=== PATIENT | female | born 1980 | race African-American/Black ===

== ENCOUNTER 2017-08-26 16:05 | Emergency (ER) | payer OTHER ==
[2017-08-26 16:55] LABS: ALT (SGPT) 12 U/L (8-55); AST (SGOT) 17 U/L (5-34); Albumin 4.5 g/dL (3.5-5.0); Alkaline Phosphatase 63 U/L (40-150); Anion Gap 19 mmol/L (10-20); BUN (Urea Nitrogen) 12 mg/dL (7.0-18.7); Bilirubin, Total 1.1 mg/dL (0.2-1.2); Calc. Creatinine Clearance 0 mL/min (70-130); Calcium 10.3 mg/dL (7.8-10.44); Chloride 102 mmol/L (98-107); Estimated GFR-MDRD Greater than 90; Globulin 3.8 g/dL (2.4-3.5); Glucose 80 mg/dL (70-105); Lipase 12 U/L (8-78); Potassium 3.9 mmol/L (3.5-5.1); Protein, Total 8.3 g/dL (6.0-8.3); Sodium 139 mmol/L (136-145)
[2017-08-26 16:56] LABS: CKMB 1.7 ng/mL (0-6.6); Troponin I Less than 0.010 ng/mL (< 0.028)
[2017-08-26 17:00] LABS: Carbon Dioxide 22 mmol/L (22-29)
== END 2017-08-26 17:06 ==
LOC: BURERS 16:05
DX: K29.70 Gastritis, unspecified, without bleeding (principal); J45.909 Unspecified asthma, uncomplicated; F31.9 Bipolar disorder, unspecified; F20.9 Schizophrenia, unspecified
CPT/HCPCS: 80053; 82553; 83690; 84484; 99285

== ENCOUNTER 2017-10-22 15:43 | Emergency (ER) | payer OTHER ==
[2017-10-22] MEDS ORDERED: Pantoprazole 40 MG VIAL ONE (16:03)
[2017-10-22 16:19] LABS: Eosinophils 6 % (0-10); Hemoglobin 12.6 g/dL (12.0-16.0); Lymphocytes 35 % (21-51); MDiff Complete? YES; Mean Corpuscular HGB CONC 34.2 g/dL (32.0-36.0); Mean Corpuscular Hemoglobin 28.7 pg (27.0-31.0); Mean Corpuscular Volume 83.9 fl (81.0-99.0); Mean Platelet Volume 6.4 fL (7.4-10.4); Monocytes 4 % (0-10); Neutrophil 55 % (42-75); Platelet Count 288 thou/uL (130-400); RBC Distribution Width 11.5 % (11.5-14.5); Red Blood Cell (RBC) Count 4.38 mill/uL (4.20-5.40); White Blood Cell (WBC) Count 5.8 thou/uL (4.8-10.8)
[2017-10-22 16:23] LABS: ALT (SGPT) 16 U/L (8-55); AST (SGOT) 18 U/L (5-34); Albumin 3.9 g/dL (3.5-5.0); Alkaline Phosphatase 41 U/L (40-150); Anion Gap 12 mmol/L (10-20); BUN (Urea Nitrogen) 7 mg/dL (7.0-18.7); Bilirubin, Total 0.4 mg/dL (0.2-1.2); Calc. Creatinine Clearance 0 mL/min (70-130); Calcium 9.2 mg/dL (7.8-10.44); Carbon Dioxide 23 mmol/L (22-29); Chloride 110 mmol/L (98-107); Estimated GFR-MDRD Greater than 90; Globulin 2.7 g/dL (2.4-3.5); Glucose 95 mg/dL (70-105); Potassium 4.3 mmol/L (3.5-5.1); Protein, Total 6.6 g/dL (6.0-8.3); Sodium 141 mmol/L (136-145)
[2017-10-22 16:24] LABS: CKMB 0.5 ng/mL (0-6.6); Troponin I Less than 0.010 ng/mL (< 0.028)
--- NOTE | 2017-10-22 18:12 | RAD ---
PORTABLE CHEST: 10/22/17 An AP portable film at 1542 is compared with a 05/22/13 study done at [facility]. This portable film shows a normal sized heart and clear lungs. No infiltrate or effusion was seen. Th ere is no vascular congestion or edema. The trachea is midline. IMPRESSION: No acute thoracic finding. POS: HOME
== END 2017-10-22 16:40 ==
LOC: BURERS 15:43
DX: K21.9 Gastro-esophageal reflux disease without esophagitis (principal); F31.9 Bipolar disorder, unspecified; F25.9 Schizoaffective disorder, unspecified; J45.909 Unspecified asthma, uncomplicated; Z87.891 Personal history of nicotine dependence
CPT/HCPCS: 71045; 80053; 82553; 84484; 85025; 93005; 96374; C9113

== ENCOUNTER 2018-11-05 14:39 | Emergency (ER) | payer OTHER, SELFPAY ==
[2018-11-05] MEDS ORDERED: Acetaminophen 500 MG TAB ONE (15:45)
== END 2018-11-05 15:48 | disposition home or self-care (01) ==
LOC: BURERS 14:39
DX: K21.9 Gastro-esophageal reflux disease without esophagitis (principal); M25.512 Pain in left shoulder; F41.9 Anxiety disorder, unspecified; F31.9 Bipolar disorder, unspecified; F25.9 Schizoaffective disorder, unspecified; F17.210 Nicotine dependence, cigarettes, uncomplicated
CPT/HCPCS: 84484; 93005

== ENCOUNTER 2022-02-16 09:47 | Emergency (ER) | payer SELFPAY ==
[2022-02-16] MEDS ORDERED: Tetracaine 0.5% PF 4 ML BOT ONE (10:22)
[2022-02-16] MEDS ORDERED: Fluorescein Opthalmic Strip ONE (10:22)
[2022-02-16] MEDS ORDERED: Neomycin-Polymyxin-Hc 7.5 ML BOT ONE (10:55)
== END 2022-02-16 11:04 | disposition home or self-care (01) ==
LOC: BURERS 09:47
DX: S05.02XA Injury of conjunctiva and corneal abrasion without foreign body, left eye, initial encounter (principal); X58.XXXA Exposure to other specified factors, initial encounter
CPT/HCPCS: 99283

== ENCOUNTER 2022-12-18 13:59 | Emergency (ER) | payer SELFPAY | END 2022-12-18 14:35 | disposition home or self-care (01) | LOC: BURERS 13:59 | DX: J06.9 Acute upper respiratory infection, unspecified (principal); M79.10 Myalgia, unspecified site; F17.210 Nicotine dependence, cigarettes, uncomplicated; J45.909 Unspecified asthma, uncomplicated | CPT/HCPCS: 99283 ==